=== PATIENT | female | born 1970 | race Two or more races ===

== ENCOUNTER 2023-01-19 05:35 | Day surgery (SDC) | payer OTHER ==
[2023-01-16 09:27] LABS: HEMOGLOBIN 12.4 g/dL (12.0-15.00); MEAN CELL VOLUME 88.7 fL (80.00-100.00); MEAN CORPUSCULAR HEMOGLOBIN 30.5 pg (27.00-32.0); MEAN CORPUSCULAR HGB CONC 34.4 g/dl (32.0-36.0); PLATELET COUNT 302 K/uL (150-450); RED BLOOD COUNT 4.05 M/uL (4.00-6.00); RED CELL DISTRIBUTION WIDTH 14.4 % (11.5-14.5)
[2023-01-16 09:37] LABS: PH,URINE 6.5 (5.0-8.0); URINE APPEARANCE Clear; URINE BILIRRUBIN Negative (NEGATIVE); URINE BLOOD Negative; URINE COLOR Yellow; URINE GLUCOSE Negative (NEGATIVE); URINE LEUKOCYTE Negative; URINE NITRATE Negative; URINE PROTEIN Negative (NEGATIVE); URINE UROBILINOGEN 0.2 E.U./dl
[2023-01-16 09:38] LABS: URINE BACTERIA 111.1 uL (0.0-1933); URINE EPITHELIAL CELLS 5.4 uL (0.0-38.8); URINE RBC 5.6 uL (0.0-20.8); URINE WBC 5.7 uL (0.0-23.2)
[2023-01-16 10:02] LABS: CREATININE SERUM 0.47 mg/dL (0.55-1.02); GFR 139.15; INR 0.98; POTASSIUM 3.72 mEq/L (3.5-5.1); PROTHROMBIN TIME 10.3 SECONDS (9.0-11.5)
[~2023-01-19] VITALS: Ht 157.5 cm; Wt 66.7 kg
[~2023-01-19 05:35] MED LIST: ADEMPAS2.5 MG PO; CARDIZEM120 MG; CHILDREN'S ASPI81 MG PO; DILTIAZEM 24HR240 MG PO; GABAPENTIN300 MG PO; LOPRESSOR25 MG PO; METFORMIN HCL1000 M2 PO; NABUMETONE500 MG PO; PEPCID AC20 MG PO; PERCOCET 5/3251 TAB PO; PNEU16DI2; PROTONIX40 MG PO; SIMVASTATIN10 MG PO; SYMBICORT 80/10.2 GM IH
== END 2023-01-19 16:05 | disposition home or self-care (01) ==
LOC: CIR.AMB 05:35
PROVIDERS: ATTEND Urology
DX: N20.0 Calculus of kidney (principal); R31.0 Gross hematuria; Z20.822 Contact with and (suspected) exposure to COVID-19